=== PATIENT | male | born 1985 | race American Indian/Alaskan Native ===

== ENCOUNTER 2018-11-07 16:48 | Inpatient (IN) | payer OTHER ==
[2018-11-07] MEDS ORDERED: NACL 0.9% 500 ML 500 ML IV ONE ×2 (16:56→19:35)
[2018-11-07] MEDS ORDERED: TYLENOL PO STA (16:56)
[2018-11-07 17:13] LABS: Basophils % (Auto) 0.2 % (0.0-1.8); Eosinophils # (Auto) 0.1 K/mm3 (0.0-0.4); Eosinophils % (Auto) 1.1 % (0.0-4.3); Hematocrit 43.7 % (35.5-45.6); Hemoglobin 14.5 gm/dl (11.8-15.2); Lymphocytes % (Auto) 16.5 % (13.4-35.0); Mean Corpuscular HGB Conc 33 % (32-34); Mean Corpuscular Volume 93 fl (84-94); Monocytes # (Auto) 1.1 K/mm3 (0.0-0.8); Monocytes % (Auto) 9.3 % (0.0-7.3); Platelet Count 320 K/mm3 (140-440); Red Blood Count 4.69 M/mm3 (3.65-5.03); Red Cell Distribution Width 13.6 % (13.2-15.2)
--- NOTE | 2018-11-07 17:15 | Emergency Department Report ---
ED General Adult HPI - General Chief complaint: GI Bleed Stated complaint: ABD PAIN/BLOOD IN URINE Time Seen by Provider: 11/07/18 17:12 Source: patient, EMS Mode of arrival: Ambulatory Limitations: No Limitations - History of Present Illness Initial comments: 33-year-old male with a history of HIV presents with a complaint of abdominal pain and back pain. Patient states he does not know what his CD4 count is. Patient states that last time he had it checked was 3 years ago and his CD4 count was in the 500s. Patient states he is not compliant with HIV medication either. Patient states that he noted blood in his stool which began 3 days ago. Patient denies any melena. Patient also complains of dysuria. Patient states the pain is in his lower flank region. Patient denies any history of nephrolithiasis. - Related Data Allergies Allergy/AdvReac Type Severity Reaction Status Date / Time No Known Allergies Allergy Unverified 11/07/18 16:51 ED Review of Systems ROS: Stated complaint: ABD PAIN/BLOOD IN URINE Other details as noted in HPI Constitutional: fever Eyes: denies: eye pain, eye discharge, vision change ENT: denies: ear pain, throat pain Respiratory: denies: cough, shortness of breath, wheezing Cardiovascular: denies: chest pain, palpitations Endocrine: no symptoms reported Gastrointestinal: abdominal pain, hematochezia Genitourinary: dysuria. denies: urgency Musculoskeletal: denies: back pain, joint swelling, arthralgia Skin: denies: rash, lesions Neurological: denies: headache, weakness, paresthesias Psychiatric: denies: anxiety, depression Hematological/Lymphatic: denies: easy bleeding, easy bruising ED Past Medical Hx - Past Medical History Previous Medical History?: Yes Hx HIV: Yes - Surgical History Past Surgical History?: Yes Additional Surgical History: left rotator cuff repair ED Physical Exam - General Limitations: No Limitations General appearance: alert, other (mildly uncomfortable;) - Head Head exam: Present: atraumatic, normocephalic - Eye Eye exam: Present: normal appearance - ENT ENT exam: Present: mucous membranes dry - Neck Neck exam: Present: normal inspection - Respiratory Respiratory exam: Present: normal lung sounds bilaterally. Absent: respiratory distress - Cardiovascular Cardiovascular Exam: Present: regular rate, normal rhythm. Absent: systolic murmur, diastolic murmur, rubs, gallop - GI/Abdominal GI/Abdominal exam: Present: soft, tenderness, normal bowel sounds. Absent: distended (mild tenderness noted diffusely with no evidence of rebound or guarding) - Rectal Rectal exam: Present: heme (+) stool, bloody stool, hemorrhoids (external present) - Extremities Exam Extremities exam: Present: normal inspection - Back Exam Back exam: Present: normal inspection - Neurological Exam Neurological exam: Present: alert, oriented X3, CN II-XII intact. Absent: motor sensory deficit - Psychiatric Psychiatric exam: Present: normal affect, normal mood - Skin Skin exam: Present: warm, dry, intact, normal color. Absent: rash ED Medical Decision Making - Lab Data Result diagrams: 11/07/18 16:59 11/07/18 16:59 - Medical Decision Making Patient had CT of Abdomen and Pelvis performed. Patient received 2-1/2 L of IV fluids while here in emergency department in addition to Tylenol therapy. Patient has a stable hemoglobin of 14. Patient received a bolus of 500 mL of normal saline as noted to be persistently tachycardic despite that intervention as stated above. Patient to be admitted to the hospitalist service for continued management and treatment with the concern for pyelonephritis. - Differential Diagnosis GI bleeding; electrolyte imbalance; UTI; pyelonephritis Critical care attestation.: If time is entered above; I have spent that time in minutes in the direct care of this critically ill patient, excluding procedure time. ED Disposition Clinical Impression: Pyelonephritis, HIV (human immunodeficiency virus infection), GI bleed Disposition: OP ADMIT IP TO THIS HOSP Is pt being admited?: Yes Does the pt Need Aspirin: No Condition: Stable Forms: Accompanied Note Time of Disposition: 19:38 Print Language: SWEDISH
[2018-11-07] MEDS ORDERED: NACL 0.9% 1000 ML 1,000 ML IV ONE ×3 (17:29→19:36)
[2018-11-07 17:30] LABS: INR 1.06 (0.87-1.13)
[2018-11-07] MEDS ORDERED: NACL 0.9% 1000 ML 2,000 ML ONE (17:32)
--- NOTE | 2018-11-07 17:32 | XRay Report ---
CHEST 1 VIEW INDICATION: possible Sepsis. COMPARISON: None FINDINGS: SUPPORT DEVICES: None. HEART / MEDIASTINUM: No significant abnormality. LUNGS / PLEURA: No significant pulmonary or pleural abnormality. No pneumothorax. ADDITIONAL FINDINGS: IMPRESSION: 1. No acute findings. Signer Name: Wilder Jean MD Signed: 11/07/2018 5:27 PM Workstation Name: [id number]
[2018-11-07 17:59] LABS: Bilirubin,Urine NEG (Negative); Blood,Urine SM (Negative); Color,Urine Amber (Yellow); Mucus,Urine 1+ /HPF; Urobilinogen,Urine < 2.0 mg/dL (<2.0)
[2018-11-07 18:10] LABS: WBC,Urine > 182.0 /HPF (0.0-6.0)
[2018-11-07 18:24] LABS: Alanine Aminotransferase 34 units/L (7-56); Albumin 3.8 g/dL (3.9-5); BUN/Creatinine Ratio 8; Blood Urea Nitrogen 9 mg/dL (9-20); Calcium 8.8 mg/dL (8.4-10.2); Hemolysis Index 8
[2018-11-07] MEDS ORDERED: ROCEPHIN/NS 1 GM/50 ML 1 GM/50 ML BAG IV ONE (18:38)
--- NOTE | 2018-11-07 19:31 | Cat Scan Report ---
CT ABDOMEN AND PELVIS WITHOUT CONTRAST INDICATION / CLINICAL INFORMATION: abdominal pain. TECHNIQUE: Axial CT images were obtained through the abdomen and pelvis without IV contrast. All CT scans at [facility] location are performed using CT dose reduction for ALARA by means of automated exposure control. COMPARISON: None available. Exam is limited without intravenous contrast. FINDINGS: LOWER CHEST: No significant abnormality. LIVER: No significant abnormality. GALLBLADDER: No significant abnormality. BILE DUCTS: No significant abnormality. PANCREAS: No significant abnormality. SPLEEN: No significant abnormality. ADRENALS: No significant abnormality. RIGHT KIDNEY and URETER: No significant abnormality. LEFT KIDNEY and URETER: No significant abnormality. STOMACH and SMALL BOWEL: No significant abnormality. COLON: No significant abnormality. APPENDIX: No significant abnormality. PERITONEUM: No free fluid. No free air. No fluid collection. LYMPH NODES: No significant adenopathy. AORTA and ARTERIES: No significant abnormality. IVC and VEINS: No significant abnormality. URINARY BLADDER: No significant abnormality. REPRODUCTIVE ORGANS: No significant abnormality. ADDITIONAL FINDINGS: None. SKELETAL SYSTEM: No significant abnormality. IMPRESSION: 1. No significant abnormality. Signer Name: Wilder Jean MD Signed: 11/07/2018 7:26 PM Workstation Name: [id number]
[2018-11-07] MEDS ORDERED: PROTONIX IV SCH (22:00)
[2018-11-07] MEDS ORDERED: ZOSYN/NS 3.375GM/50ML 3.375 GM/50 ML BAG IV SCH (22:00)
[2018-11-07] MEDS ORDERED: NACL 0.9% 1000 ML 1,000 ML IV SCH (22:00)
[2018-11-07] MEDS ORDERED: TYLENOL PO PRN (22:01)
[2018-11-07] MEDS ORDERED: ZOFRAN IV PRN (22:02)
[2018-11-07] MEDS: ZOSYN/NS 4.5GM/100ML 4.5 GM/100 ML VIAL IV SCH (22:28)
[2018-11-08 00:49] LABS: Hematocrit 37.4 % (35.5-45.6); Hemoglobin 12.3 gm/dl (11.8-15.2)
--- NOTE | 2018-11-08 05:05 | History and Physical Report ---
CHIEF COMPLAINT: Blood in the stool. Other complaints include abdominal pain. HISTORY OF PRESENTING ILLNESS: The patient is a 33-year-old male with past medical history of HIV infection, complaining of presence of blood in the stool going on for 3 days. There is history of abdominal pain and back pain and there is also history of left flank pain. The patient stated that he has not been compliant with his antiretroviral medication and has not had his CD4 count as well as viral load checked in many years. There is no history of shortness of breath. No history of nausea and vomiting. However, the patient has history of painful micturition and there is no history of chest pain. PAST MEDICAL HISTORY: Pertinent for HIV infection with noncompliance. PAST SURGICAL HISTORY: Pertinent for left rotator cuff surgery. FAMILY HISTORY: Noncontributory. SOCIAL HISTORY: The patient smokes cigarettes, drinks alcohol occasionally and denies use of illicit drugs. MEDICATIONS: The patient's home medications include bictegravir/emtricitabine/tenofovir alafenamide which is Biktarvy 50/200/25 one by mouth daily. ALLERGIES: There are no known drug allergies. REVIEW OF SYSTEMS: CONSTITUTIONAL: There is no fever, no chills, no diaphoresis. HEENT: There is no headache or sore throat. CARDIOVASCULAR SYSTEM: There is no chest pain or orthopnea. RESPIRATORY SYSTEM: There is no shortness of breath or cough. GASTROINTESTINAL SYSTEM: Abdominal pain is present. Blood in the stool is noted. No nausea, no vomiting, no diarrhea or constipation. NEUROLOGICAL SYSTEM: There is no numbness, no dizziness, no altered mental status. MUSCULOSKELETAL SYSTEM: There is no joint pain or swelling. DERMATOLOGICAL SYSTEM: There is no skin rash or itching. GENITOURINARY SYSTEM: There is left flank pain and there is dysuria with some hematuria noted. PHYSICAL EXAMINATION: GENERAL: At the time of exam, the patient was found to be alert, oriented x 3 and not in acute distress. VITAL SIGNS: At the initial time of presentation showed temperature of 98.2 degrees Fahrenheit. The patient's pulse was a little high with a value of 108, respiration was 15, blood pressure 121/74, O2 sat of 97% on room air. HEENT: Showed pupils to be equal, round, reactive to light and accommodating. Extraocular muscles are intact. NECK: Supple with no JVD or carotid bruit. CARDIOVASCULAR SYSTEM: Showed normal first and second heart sounds with no gallops or murmurs. RESPIRATORY SYSTEM: Showed good air entry on both sides of the lungs with no abnormal breath sounds. GASTROINTESTINAL SYSTEM: Showed abdomen to be full, soft, nontender with no organomegaly or rigidity. NEUROLOGIC: Shows no focal deficit. MUSCULOSKELETAL SYSTEM: Showed no joint swelling or tenderness. DERMATOLOGICAL SYSTEM: Showed no skin rash. GENITOURINARY SYSTEM: Showing no costovertebral angle tenderness. PERTINENT LABORATORY AND IMAGING STUDIES: The patient had urinalysis done that shows charito, cloudy urine with moderate urine leukocyte esterase and high urine wbc of greater than 182 with high urine rbc of 13 and negative urine nitrite. The patient's chemistry shows low sodium level of 133, low potassium level of 3.4 and low chloride level of 95.4 with slightly low albumin level of 3.8. The patient's coagulation studies were unremarkable. The patient's CBC showed elevated white count of 11,900 with normal hemoglobin and normal hematocrit and slightly elevated segmentary neutrophil count of 72.9% on CBC differential. DIAGNOSES: 1. Gastrointestinal bleed. 2. Human immunodeficiency virus infection. 3. Sepsis. 4. Urinary tract infection. PLAN OF CARE: 1. The patient will be admitted to telemetry. 2. The patient will have hemoglobin and hematocrit checked every 6 hours serially x 2 more levels. 3. The patient will remain n.p.o. until seen by the on awake counselor. 4. The patient will have a GI consult with [facility] with Dr. Saurav bah. 5. The patient will have an Infectious Disease consult with Dr. Helm today, 11/08/2018 for management of HIV infection. 6. The patient will be on IV Zosyn 4.5 g q. 8 hours for treatment of sepsis and urinary tract infection and also, the patient will be on IV Levaquin 750 mg daily as part of treatment of sepsis. 7. The patient will be on IV Protonix 40 mg twice daily for treatment of GI bleed. 8. The patient will be on IV normal saline running at 125 mL an hour as part of maintenance fluid having received the initial boluses needed for treatment of sepsis. 9. The patient will be on Tylenol 650 mg by mouth every 4 hours for fever and headache and IV Zofran 4 mg every 8 hours for nausea and vomiting. 10. The patient will remain n.p.o. until seen by the on awake counselor and DVT prophylaxis will be through sequential compressive device. JOB# [id number] OCN/NTS
[2018-11-08 06:46] LABS: Hematocrit 37.3 % (35.5-45.6); Hemoglobin 12.1 gm/dl (11.8-15.2)
[2018-11-08 07:58] VITALS: BP 112/62
[2018-11-08] MEDS ORDERED: LEVAQUIN 750MG/150ML 750 MG/150 ML BAG IV SCH (10:00)
[2018-11-08] MEDS ORDERED: PROTONIX PO SCH (10:00)
[2018-11-08] MEDS: ZOSYN/NS 4.5GM/100ML 4.5 GM/100 ML VIAL IV SCH (10:05)
--- NOTE | 2018-11-08 13:00 | Gastroenterology Consultation ---
History of Present Illness - Reason for Consult Consult date: 11/08/18 GI bleed Requesting physician: RAQUEL AYOUB - History of Present Illness Patient is a 33 y/o male with PMH of HIV ( currently off medication; unknonw CD4 count) who presented to ED with c/o fever, dysuria, and pelvic/lower flank pain. Upon admission he was found to have an UTI to which he was admitted and currently receiving antibiotics. ID consult pending. He also had c/o diarrhea with blood in stool to which GI has been consulted. Abd CT unremarkable. Urine culture, blood culture, and serum for gonorrhea/chlamydia pending. This afternoon patient was resting in bed w/o acute distress. He reports feeling better with symptoms now improving. States watery diarrhea began 4 days ago, simultaneously with other symptoms as previously stated. Reports intermittent streaks of bright red blood in stool since onset of diarrhea with last episode this am. Denies hematemesis or melena. Fever and N/V now resolved. Tolerating diet. No hx or Fhx of IBD. No previous colonoscopy. Past History Past Medical History: HIV/AIDS Past Surgical History: Other (left rotator cuff repair) Medications and Allergies Allergies Allergy/AdvReac Type Severity Reaction Status Date / Time No Known Allergies Allergy Unverified 11/07/18 16:51 Home Medications Medication Instructions Recorded Confirmed Last Taken Type Bictegrav/Emtricit/Tenofov Ala 1 tab PO DAILY 11/07/18 11/07/18 Unknown History [Biktarvy 50-200-25 mg (Nf)] Active Meds: Active Medications Acetaminophen (Tylenol) 650 mg PO Q4H PRN PRN Reason: Fever >101 Sodium Chloride (Nacl 0.9% 1000 Ml) 1,000 mls @ 125 mls/hr IV DIRECT NISA Last Admin: 11/08/18 05:24 Dose: 125 mls/hr Documented by: Piperacillin Sod/Tazobactam Sod (Zosyn/Ns 4.5gm/100ml) 4.5 gm in 100 mls @ 200 mls/hr IV Q8HR NISA; Protocol Last Admin: 11/08/18 10:05 Dose: 200 mls/hr Documented by: Levofloxacin/Dextrose (Levaquin 750mg/150ml) 750 mg in 150 mls @ 100 mls/hr IV Q24HR NISA; Protocol Last Admin: 11/08/18 10:14 Dose: 100 mls/hr Documented by: Ondansetron HCl (Zofran) 4 mg IV Q8H PRN PRN Reason: Nausea And Vomiting Pantoprazole Sodium (Protonix) 40 mg PO QDAY [facility] Last Admin: 11/08/18 10:16 Dose: 40 mg Documented by: medications reviewed/updated as required Review of Systems - Review of Systems All systems: negative Gastrointestinal: diarrhea, other (blood in stool) Exam - Constitutional Vital Signs: Temp Pulse Resp BP Pulse Ox 98.9 F 98 H 18 112/62 98 11/08/18 07:55 11/08/18 04:01 11/08/18 07:55 11/08/18 07:55 11/08/18 03:34 General appearance: no acute distress - EENT Eyes: PERRL, EOM intact ENT: hearing intact - Respiratory Respiratory effort: normal - Cardiovascular Rhythm: regular - Gastrointestinal General gastrointestinal: Present: soft, non-tender, non-distended, normal bowel sounds - Neurologic Neurological: alert and oriented x3 - Labs CBC & Chem 7: 11/08/18 06:00 11/07/18 16:59 Lab Results: Laboratory Results - last 24 hr 11/07/18 11/07/18 11/07/18 16:59 16:59 16:59 WBC 11.9 H RBC 4.69 Hgb 14.5 Hct 43.7 MCV 93 MCH 31 MCHC 33 RDW 13.6 Plt Count 320 Lymph % (Auto) 16.5 [place] % (Auto) 9.3 H Eos % (Auto) 1.1 Baso % (Auto) 0.2 Lymph # 2.0 [place] # 1.1 H Eos # 0.1 Baso # 0.0 Seg Neutrophils % 72.9 H Seg Neutrophils # 8.6 H PT 13.5 INR 1.06 VBG pH Sodium 133 L Potassium 3.4 L Chloride 95.4 L Carbon Dioxide 24 Anion Gap 17 BUN 9 Creatinine 1.1 Estimated GFR > 60 BUN/Creatinine Ratio 8 Glucose 80 Lactic Acid Calcium 8.8 Total Bilirubin 0.40 AST 35 ALT 34 Alkaline Phosphatase 64 Total Protein 8.2 Albumin 3.8 L Albumin/Globulin Ratio 0.9 Urine Color Urine Turbidity Urine pH Ur Specific [place] Urine Protein Urine Glucose (UA) Urine Ketones Urine Blood Urine Nitrite Urine Bilirubin Urine Urobilinogen Ur Leukocyte Esterase Urine WBC (Auto) Urine RBC (Auto) U Epithel Cells (Auto) Urine Mucus 11/07/18 11/07/18 11/07/18 16:59 16:59 17:34 WBC RBC Hgb Hct MCV MCH MCHC RDW Plt Count Lymph % (Auto) [place] % (Auto) Eos % (Auto) Baso % (Auto) Lymph # [place] # Eos # Baso # Seg Neutrophils % Seg Neutrophils # PT INR VBG pH 7.376 Sodium Potassium Chloride Carbon Dioxide Anion Gap BUN Creatinine Estimated GFR BUN/Creatinine Ratio Glucose Lactic Acid 1.00 Calcium Total Bilirubin AST ALT Alkaline Phosphatase Total Protein Albumin Albumin/Globulin Ratio Urine Color Karol Urine Turbidity Cloudy Urine pH 5.0 Ur Specific [place] 1.026 Urine Protein 100 mg/dl Urine Glucose (UA) Neg Urine Ketones Neg Urine Blood Sm Urine Nitrite Neg Urine Bilirubin Neg Urine Urobilinogen < 2.0 Ur Leukocyte Esterase Mod Urine WBC (Auto) > 182.0 H Urine RBC (Auto) 13.0 U Epithel Cells (Auto) 1.0 Urine Mucus 1+ 11/07/18 11/08/18 11/08/18 19:42 00:36 06:00 WBC RBC Hgb 12.3 12.1 Hct 37.4 D 37.3 MCV MCH MCHC RDW Plt Count Lymph % (Auto) [place] % (Auto) Eos % (Auto) Baso % (Auto) Lymph # [place] # Eos # Baso # Seg Neutrophils % Seg Neutrophils # PT INR VBG pH Sodium Potassium Chloride Carbon Dioxide Anion Gap BUN Creatinine Estimated GFR BUN/Creatinine Ratio Glucose Lactic Acid 1.10 Calcium Total Bilirubin AST ALT Alkaline Phosphatase Total Protein Albumin Albumin/Globulin Ratio Urine Color Urine Turbidity Urine pH Ur Specific [place] Urine Protein Urine Glucose (UA) Urine Ketones Urine Blood Urine Nitrite Urine Bilirubin Urine Urobilinogen Ur Leukocyte Esterase Urine WBC (Auto) Urine RBC (Auto) U Epithel Cells (Auto) Urine Mucus Assessment and Plan 1.diarrhea 2.blood in stool 3.UTI 4.HIV (not on medication; unknown CD4 count)- ID consult pending -afebrile -WBC 11.9 -H/H WNL -abd CT unremarkable -Urine culture, blood culture, and serum for gonorrhea/chlamydia pending -etiology-likely infectious proctitis given history -clinically, patient is stable. Reports feeling better with symptoms now improving. No abd pain or N/V. Tolerating diet. -will order RPR -continue empiric antibiotics -continue supportive care -no plan for scope at this time, will consider as outpatient if symptoms persist
[2018-11-08] MEDS ORDERED: ROCEPHIN IM SCH (14:30)
--- NOTE | 2018-11-08 14:32 | Discharge Summary ---
Providers - Providers Date of Admission: 11/07/18 21:45 Date of discharge: 11/08/18 Attending physician: CURTIS MEDELLIN 11/07/18 19:39 Consult to Physician [CONS] Routine Comment: Consulting Provider: DAVE BAROBSA Physician Instructions: Reason For Exam: gi bleed 11/08/18 06:00 Consult to Physician [CONS] Routine Comment: Consulting Provider: BRITTNY MIRZA Physician Instructions: Reason For Exam: HIV INFECTION NOT PROPERLY WORKED UP Primary care physician: MACHINE ADJUSTER LEADER Hospitalization Condition: Stable Hospital course: Discharge diagnosis: 1.diarrhea 2.blood in stool 3.UTI 4.HIV (not on medication; unknown CD4 count) Disposition: - TO HOME OR SELFCARE Time spent for discharge: 34 minutes Core Measure Documentation - Palliative Care Palliative Care/ Comfort Measures: Not Applicable - Core Measures Any of the following diagnoses?: none Exam - Constitutional Vitals: Temp Pulse Resp BP Pulse Ox 98.9 F 98 H 18 112/62 98 11/08/18 07:55 11/08/18 04:01 11/08/18 07:55 11/08/18 07:55 11/08/18 03:34 General appearance: Present: no acute distress, well-nourished - EENT Eyes: Present: PERRL ENT: hearing intact, clear oral mucosa - Neck Neck: Present: supple, normal ROM - Respiratory Respiratory effort: normal Respiratory: bilateral: CTA - Cardiovascular Heart Sounds: Present: S1 & S2. Absent: rub, click - Extremities Extremities: pulses symmetrical, No edema Peripheral Pulses: within normal limits - Abdominal General gastrointestinal: Present: soft, non-tender, non-distended, normal bowel sounds - Integumentary Integumentary: Present: clear, warm, dry - Musculoskeletal Musculoskeletal: gait normal, strength equal bilaterally - Psychiatric Psychiatric: appropriate mood/affect, intact judgment & insight - Neurologic Neurologic: CNII-XII intact, moves all extremities Plan Activity: advance as tolerated Weight Bearing Status: Weight Bear as Tolerated Diet: low fat, low salt Follow up with: PRIMARY CARE, [Primary Care Provider] - 3-5 Days Forms: Accompanied Note Prescriptions: levoFLOXacin [Levaquin TAB] 500 mg PO QDAY #5 tablet Hydrocortisone [Proctosol-Hc 2.5% TOP CREAM] 10 applic RC DAILY PRN #14 cream.appl PRN Reason: Hemorrhoids
[2018-11-08] MEDS ORDERED: BICILLIN L-A IM ONE (14:39)
[2018-11-08] MEDS ORDERED: XYLOCAINE 1% MPF 5 mL INFILTRATI ONE (15:00)
[2018-11-08] MEDS ORDERED: ZITHROMAX PO ONE (15:00)
[2018-11-08] MEDS ORDERED: ROCEPHIN IM ONE (15:00)
--- NOTE | 2018-11-08 15:00 | Consultation ---
History of Present Illness - Reason for Consult Consult date: 11/08/18 HIV Requesting physician: CURTIS MEDELLIN - History of Present Illness The patient is a 33-year-old male with known HIV positive for the last 19 years. He presented to the emergency room yesterday with complaints of burning as well as some pain in his rectal region along with few bloody streaks. Follow up with the [facility] and is currently on Biktarvy, he showed me a bottle. He doesn't remember his last labs, he was checked about 5 months ago. He is sexually active with another HIV positive partner. He received empiric antibiotics in the ER, GI was consulted, no plans for scope. CT abdomen pelvis was unremarkable. Review of Systems: General: no fevers,chills or rigors HEENT: no new visual disturbance Respiratory: No cough, sputum, hemoptysis or shortness of breath Cardiovascular: No chest pain, syncope Gastrointestinal: No nausea, vomiting or diarrhea Genitourinary: dysuria + or hematuria Musculoskeletal: No new or worsening neck pain or back pain Neurologic: No headaches, seizures Hematologic: No easy bruising or bleeding Endocrine: No night sweats or acute weight loss Skin: negative for rash, jaundice Psychiatric: No suicidal or homicidal ideation Past History Past Medical History: HIV/AIDS Past Surgical History: Other (left rotator cuff repair) Medications and Allergies Allergies Allergy/AdvReac Type Severity Reaction Status Date / Time No Known Allergies Allergy Unverified 11/07/18 16:51 Home Medications Medication Instructions Recorded Confirmed Last Taken Type Bictegrav/Emtricit/Tenofov Ala 1 tab PO DAILY 11/07/18 11/07/18 Unknown History [Biktarvy 50-200-25 mg (Nf)] Hydrocortisone [Proctosol-Hc 2.5% 10 applic RC DAILY PRN #14 11/08/18 Unknown Rx TOP CREAM] cream.appl levoFLOXacin [Levaquin TAB] 500 mg PO QDAY #5 tablet 11/08/18 Unknown Rx Active Meds: Active Medications Acetaminophen (Tylenol) 650 mg PO Q4H PRN PRN Reason: Fever >101 Azithromycin (Zithromax) 1,000 mg PO ONCE ONE Stop: 11/08/18 15:01 Ceftriaxone Sodium (Rocephin) 250 mg IM ONCE ONE Stop: 09/17/19 15:01 Sodium Chloride (Nacl 0.9% 1000 Ml) 1,000 mls @ 125 mls/hr IV DIRECT NISA Last Admin: 11/08/18 05:24 Dose: 125 mls/hr Documented by: Lidocaine (Xylocaine 1% Mpf 5 Ml) 2 ml INFILTRATI ONCE ONE Stop: 11/08/18 15:01 Ondansetron HCl (Zofran) 4 mg IV Q8H PRN PRN Reason: Nausea And Vomiting Pantoprazole Sodium (Protonix) 40 mg PO QDAY [facility] Last Admin: 11/08/18 10:16 Dose: 40 mg Documented by: Potassium Chloride (K-Dur) 40 meq PO ONCE ONE Stop: 11/08/18 15:26 Physical Examination - Physical Exam Narrative exam: Physical Exam: Constitutional: Alert, cooperative. No acute distress Head, Ears, Nose: Normocephalic, atraumatic. External ears, nose normal Eyes: Conjunctivae/corneas clear. No icterus. No ptosis. Neck: Supple, no meningeal signs Oral: dentition fair, no thrush Cardiovascular: S1, S2 normal. Respiratory: Good air entry, clear to auscultation bilaterally GI: Soft, non-tender; bowel sounds normal. No peritoneal signs Musculoskeletal: No pedal edema, no cyanosis. Skin: No rash or abscess Hem/Lymphatic: No palpable cervical or supraclavicular nodes. No lymphangitis Psych: Mood ok. Affect normal Neurological: Awake, alert, oriented. No gross abnormality - Constitutional Vitals: Vital Signs Temp Pulse Resp BP Pulse Ox 98.9 F 98 H 18 112/62 98 11/08/18 07:55 11/08/18 04:01 11/08/18 07:55 11/08/18 07:55 11/08/18 03:34 Temperature -Last 24 Hours Temperature 98.9 F Temperature 98.5 F Temperature 98.2 F Temperature 98.9 F Temperature 98.3 F Temperature 100.7 F Temperature 100.7 F Results - Labs CBC & Chem 7: 11/08/18 06:00 11/07/18 16:59 Labs: Abnormal lab results 11/07/18 11/07/18 11/07/18 Range/Units 16:59 16:59 17:34 WBC 11.9 H (4.5-11.0) K/mm3 Benson % (Auto) 9.3 H (0.0-7.3) % Benson # 1.1 H (0.0-0.8) K/mm3 Seg Neutrophils % 72.9 H (40.0-70.0) % Seg Neutrophils # 8.6 H (1.8-7.7) K/mm3 Sodium 133 L (137-145) mmol/L Potassium 3.4 L (3.6-5.0) mmol/L Chloride 95.4 L (98-107) mmol/L Albumin 3.8 L (3.9-5) g/dL Urine WBC (Auto) > 182.0 H (0.0-6.0) /HPF - Imaging and Cardiology CT scan - abdomen: report reviewed, image reviewed (no acute abnormality noted.) Assessment and Plan Cultures: 11/07/2018 blood culture is in progress A/P: 33-year-old male with known HIV positive for the last 19 years with: 1) HIV: Patient follows up with the [facility] and is currently on Biktarvy. Recommend continue Biktarvy and follow up for repeat labs. 2) Dysuria: suspect STD. 3) Rectal pain with few blood streaks: agree with STD testing. GI following. Recs: Continue Biktarvy Patient states he must leave the hospital [facility] or he will lose his furniture. Would give him empiric Ceftriaxone + Azithromycin to cover for GC and also IM Penicillin to cover for syphilis prior to discharge. He is agreeable to this. OK to discharge on PO levofloxacin x 5 days to cover for UTI. discussed with Dr Medellin. Advised to follow up with [facility] and to return to the hospital if his symptoms persist or worsen Myke Helm MD, FACP [facility] C: [phone] O: [phone] F: [phone]
[2018-11-08] MEDS ORDERED: K-DUR PO ONE (15:25)
== END 2018-11-08 17:58 | disposition home or self-care (01) | DRG 975 ==
LOC: ED 16:48 → 4A 21:45
PROVIDERS: ADMIT Internal Medicine; ATTEND Internal Medicine
DX: A41.9 Sepsis, unspecified organism (principal); B20 Human immunodeficiency virus [HIV] disease; N12 Tubulo-interstitial nephritis, not specified as acute or chronic; K92.1 Melena
CPT/HCPCS: 36415; 71045; 74176; 80053; 81001; 82140; 82805; 85014; 85018; 85025; 85610; 86592; 86593; 86780; 87040; 87086; 87591; 93005; 93010; G0378; C9113; J0561; J0696; J1956; J2543; J7030; J7040

== ENCOUNTER 2019-07-07 04:18 | Emergency (ER) | payer SELFPAY ==
[2019-07-07] MEDS ORDERED: SODIUM CHLORIDE 0.9% 1000 ML 1,000 ML IV ONE (04:42)
[2019-07-07] MEDS ORDERED: ACETAMINOPHEN 500 MG TAB PO STA (04:46)
[2019-07-07 05:09] LABS: Bacteria,Urine 1+ /HPF (Negative); Bilirubin,Urine NEG (Negative); Blood,Urine LG (Negative); Color,Urine Yellow (Yellow); Mucus,Urine FEW /HPF; WBC,Urine > 182.0 /HPF (0.0-6.0)
[2019-07-07 05:10] LABS: Benzodiazepines Screen,Urine PRESUMPTIVE NEGATIVE; Cocaine Screen,Urine PRESUMPTIVE NEGATIVE; Methadone Screen,Urine PRESUMPTIVE NEGATIVE; Opiate Screen,Urine PRESUMPTIVE NEGATIVE
--- NOTE | 2019-07-07 05:39 | XRay Report ---
CHEST 1 VIEW INDICATION: possible Sepsis. COMPARISON: 11/07/2018 FINDINGS: Support devices: None. Heart: Within normal limits. Lungs/Pleura: No acute air space or interstitial disease. Additional findings: None. IMPRESSION: 1. No acute findings. Signer Name: Silvino Morrison MD Signed: 07/07/2019 5:34 AM Workstation Name: [id number]
[2019-07-07 05:54] LABS: Basophils # (Auto) 0.1 K/mm3 (0.0-0.1); Basophils % (Auto) 0.7 % (0.0-1.8); Eosinophils % (Auto) 0.3 % (0.0-4.3); Hematocrit 31.4 % (35.5-45.6); Hemoglobin 10.3 gm/dl (11.8-15.2); Lymphocytes # (Auto) 3.1 K/mm3 (1.2-5.4); Lymphocytes % (Auto) 29.1 % (13.4-35.0); Mean Corpuscular HGB Conc 33 % (32-34); Mean Corpuscular Volume 90 fl (84-94); Monocytes # (Auto) 1.2 K/mm3 (0.0-0.8); Platelet Count 345 K/mm3 (140-440); Red Blood Count 3.48 M/mm3 (3.65-5.03); Red Cell Distribution Width 14.4 % (13.2-15.2)
[2019-07-07 06:04] LABS: INR 1.13 (0.87-1.13)
[2019-07-07 06:06] LABS: Amphetamine Screen,Urine PRESUMPTIVE POSITIVE; Cannabinoid Screen,Urine PRESUMPTIVE POSITIVE
[2019-07-07 06:06] LABS: Alanine Aminotransferase 33 units/L (7-56); Albumin 2.6 g/dL (3.9-5); BUN/Creatinine Ratio 13; Blood Urea Nitrogen 13 mg/dL (9-20); Calcium 7.6 mg/dL (8.4-10.2); Hemolysis Index 5
[2019-07-07] MEDS ORDERED: AZITHROMYCIN 1 GM ORAL PWDR PACKET PO ONE (07:10)
[2019-07-07] MEDS ORDERED: ONDANSETRON 4 MG/2 ML INJ IV ONE (07:11)
[2019-07-07] MEDS ORDERED: fentaNYL 100 MCG/2 ML INJ IV ONE (07:11)
--- NOTE | 2019-07-07 07:21 | Emergency Department Report ---
HPI - General Chief Complaint: Abdominal Pain PUI?: No Time Seen by Provider: 07/07/19 06:55 - HPI HPI: Room 19 The patient is a 34-year-old male present with a chief complaint of testicular pain and swelling. The patient states for the past 5 days she has had pain and swelling of the left testicle, penile discharge and dysuria. Patient admits to subjective fever and left lower quadrant abdominal pain. Patient gives his pain a score of 7/10 ED Past Medical Hx - Past Medical History Previous Medical History?: Yes Hx HIV: Yes (No meds. Unknown CD4 count) - Surgical History Past Surgical History?: No Additional Surgical History: left rotator cuff repair - Social History Smoking Status: Current Every Day Smoker (1 pack/day) Substance Use Type: None (Denies illicit drug use) - Medications Home Medications: Home Medications Medication Instructions Recorded Confirmed Last Taken Type Bictegrav/Emtricit/Tenofov Ala 1 tab PO DAILY 11/07/18 11/07/18 Unknown History [Biktarvy 50-200-25 mg (Nf)] Hydrocortisone [Proctosol-Hc 2.5% 10 applic RC DAILY PRN #14 11/08/18 Unknown Rx TOP CREAM] cream.appl levoFLOXacin [Levaquin TAB] 500 mg PO QDAY #5 tablet 11/08/18 Unknown Rx Ciprofloxacin HCl [Ciprofloxacin 500 mg PO Q12HR #20 tab 07/07/19 Unknown Rx TAB] HYDROcodone/APAP 5-325 [[place] 1 - 2 each PO Q6HR PRN #10 tablet 07/07/19 Unknown Rx 5/325] Ibuprofen [Motrin 800 MG tab] 800 mg PO Q8HR PRN #20 tablet 07/07/19 Unknown Rx ED Review of Systems ROS: Stated complaint: LOWER ABDOMINAL PAIN, SWOLLEN TESTICLES Other details as noted in HPI Constitutional: diaphoresis, fever (Subjective) Eyes: denies: eye pain ENT: denies: throat pain Respiratory: no symptoms reported Cardiovascular: denies: chest pain Endocrine: no symptoms reported Gastrointestinal: abdominal pain Genitourinary: dysuria, discharge, testicular pain Musculoskeletal: denies: back pain Neurological: denies: headache Physical Exam - Physical Exam Vital Signs: Vital Signs 07/07/19 07/07/19 07/07/19 04:34 04:56 06:26 Temperature 102 F H 99.3 F Pulse Rate 120 H 110 H Respiratory 19 19 17 Rate Blood Pressure 123/73 122/78 [Right] O2 Sat by Pulse 99 99 98 Oximetry Physical Exam: GENERAL: The patient is well-developed well-nourished male lying on stretcher not appearing to be in acute distress. [] HEENT: Normocephalic. Atraumatic. Extraocular motions are intact. Patient has moist mucous membranes. NECK: Supple. Trachea midline CHEST/LUNGS: Clear to auscultation. There is no respiratory distress noted. HEART/CARDIOVASCULAR: Regular. There is tachycardia. There is no gallop rub or murmur. ABDOMEN: Abdomen is soft, nontender. Patient has normal bowel sounds. There is no abdominal distention. SKIN: There is no rash. Patient is slightly diaphoretic NEURO: The patient is awake, alert, and oriented. The patient is cooperative. The patient has normal speech MUSCULOSKELETAL: There is no evidence of acute injury. ED Course Vital Signs 07/07/19 07/07/19 07/07/19 04:34 04:56 06:26 Temperature 102 F H 99.3 F Pulse Rate 120 H 110 H Respiratory 19 19 17 Rate Blood Pressure 123/73 122/78 [Right] O2 Sat by Pulse 99 99 98 Oximetry ED Medical Decision Making - Lab Data Result diagrams: 07/07/19 05:26 07/07/19 05:26 - Radiology Data Radiology results: report reviewed (Chest x-ray, testicular ultrasound), image reviewed (Chest x-ray, testicular ultrasound) interpreted by me: Chest x-ray-no focal infiltrates, no pneumothorax Findings [facility] [address] [place] [address] Ultrasound Report Signed Patient: HUSSEIN DIXON MR#: [id number] : 1985 Acct:[id number] Age/Sex: 34 / M ADM Date: 07/07/19 Loc: ED Attending Dr: Ordering Physician: DONTAE GALICIA MD Date of Service: 07/07/19 Procedure(s): US testicular doppler comp Accession Number(s): [id number] cc: DONTAE GALICIA MD Scrotal Ultrasound HISTORY: Left testicular swelling and pain. TECHNIQUE: Grayscale and color imaging performed. COMPARISON: None FINDINGS: Testicles are normal in size and appearance with preserved blood flow. The left-sided epididymis is enlarged and hyperemic. Right-sided epididymis has a simple cyst measuring 1.2 cm. There are small bilateral hydroceles. IMPRESSION: 1. Mild left-sided epididymitis. 2. Small bilateral hydroceles. 3. Simple right sided epididymal cyst. Signer Name: Silvino Morrison MD Signed: 07/07/2019 7:54 AM Workstation Name: [id number] Transcribed By: Dictated By: Silvino Morrison MD Electronically Authenticated By: Silvino Morrison MD Signed Date/Time: 07/07/19753 DD/ 1 TD/TT: Chest x-ray (read by radiologist)-no acute findings - Differential Diagnosis Epididymitis, prostatitis, UTI, pyelonephritis Critical care attestation.: If time is entered above; I have spent that time in minutes in the direct care of this critically ill patient, excluding procedure time. ED Disposition Clinical Impression: Acute epididymitis, Left testicular pain, UTI (urinary tract infection) Disposition: TO HOME OR SELFCARE Is pt being admited?: No Does the pt Need Aspirin: No Condition: Stable Instructions: Epididymitis (ED) Additional Instructions: Return to the emergency department should you develop worsening symptoms, inability to tolerate food or liquids, high fever or any other concerns Prescriptions: Ciprofloxacin HCl [Ciprofloxacin TAB] 500 mg PO Q12HR #20 tab Ibuprofen [Motrin 800 MG tab] 800 mg PO Q8HR PRN #20 tablet PRN Reason: Pain, Moderate (4-6) HYDROcodone/APAP 5-325 [[place] 5/325] 1 - 2 each PO Q6HR PRN #10 tablet PRN Reason: Pain Referrals: KATTY LOPEZ MD [Staff Physician] - [facility] (Dr. Lopez is a urologist. Please follow-up with him for further evaluation of your epididymitis) CEDRICK SEGURA MD [Staff Physician] - [facility] (Dr. Segura is an infectious disease physician. Please follow-up with him to be established as a patient) Forms: STI Treatment and Prevention Time of Disposition: 08:46
--- NOTE | 2019-07-07 07:58 | Ultrasound Report ---
Scrotal Ultrasound HISTORY: Left testicular swelling and pain. TECHNIQUE: Grayscale and color imaging performed. COMPARISON: None FINDINGS: Testicles are normal in size and appearance with preserved blood flow. The left-sided epidi dymis is enlarged and hyperemic. Right-sided epididymis has a simple cyst measuring 1.2 cm. There are small bilateral hydroceles. IMPRESSION: 1. Mild left-sided epididymitis. 2. Small bilateral hydroceles. 3. Simple right sided epididymal cyst. Signer Name: Silvino Morrison MD Signed: 07/07/2019 7:54 AM Workstation Name: [id number]
[2019-07-07] MEDS: LIDOCAINE-MPF (1%) 10 MG/1 ML VIAL 5 ML INFILTRATI ONE ×2 (08:10→08:11)
[2019-07-07 09:43] VITALS: BP 130/78
== END 2019-07-07 09:41 | disposition home or self-care (01) ==
LOC: ED 04:18
DX: N45.1 Epididymitis (principal); N39.0 Urinary tract infection, site not specified; N50.812 Left testicular pain; F17.200 Nicotine dependence, unspecified, uncomplicated; Z98.890 Other specified postprocedural states; Z79.1 Long term (current) use of non-steroidal anti-inflammatories (NSAID); Z79.2 Long term (current) use of antibiotics; Z79.899 Other long term (current) drug therapy; Z21 Asymptomatic human immunodeficiency virus [HIV] infection status
CPT/HCPCS: 36415; 71045; 80053; 80307; 81001; 82140; 82805; 85025; 85610; 87040; 87086; 93975; 96372; 96374; 96375; 99285; J0696; J2405; J3010; J7030